=== PATIENT | female | born 1970 | race Caucasian/White ===

== ENCOUNTER 2025-01-01 07:37 | Emergency (ER) | payer MEDICARE, BC ==
[~2025-01-01] VITALS: Ht 162.6 cm; Wt 91.8 kg
[2025-01-01] MEDS: HYDROcodone-ACET 5/325MG TAB PO ONE (08:39)
[2025-01-01 08:47] VITALS: BP 126/76; PULSE 78; RESP 17; TEMP 98; O2SAT 97
--- NOTE | 2025-01-01 09:03 | ED.PDOC ---
History of Present Illness HPI Comments 54-year-old female presents with a chief complaint of knee pain s/p full-knee replacement in October 2024. Patient states that she had full-knee replacement surgery back in October 2024 on her left knee and was prescribed pain medication. Patient reports that all of this occurred in [facility] and since moving to [place], she has been unable to get refills on her pain medication. Patient takes Hydrocodone 5-325mg for the pain every 6 hours. Patient states that she has an appointment with pain management, but not until January 10, 2025. left knee pain Quality: Stabbing 10/10 pain Pharmacotherapy: [place]field 5/325mg Able to bear weight on the leg Denies trauma to the knee or recent fall Denies skin color changes around the knee Denies masses around the knee Denies popping/locking/giving out of the knee Denies fever chills night sweats nausea vomiting Denies previous surgeries to the knee nor significant injury Chief Complaint: Back Pain Time Seen by MD: 08:20 Primary Care Provider: NONE Reviewed Notes: Medications, Allergies Allergies: Coded Allergies: Carisoprodol (Verified Allergy, Unknown, 01/01/25) Erythromycin (Verified Allergy, Unknown, 01/01/25) Penicillins (Verified Allergy, Unknown, 01/01/25) Home Meds Active Scripts Tramadol HCl (Tramadol HCl) 50 Mg Tab, 50 MG PO Q8HP PRN for 10 Days, #30 TAB 0 Refills Prov:JEANNE GOSS NP 01/01/25 Information Source: Patient Mode of Arrival: Ambulatory Severity: Moderate Timing: Months Duration: Intermittent Prehospital treatment: None Past Medical History PAST MEDICAL HISTORY: Depression Surgical History: Denies all surgeries AIRFRAME TECHNICAL OFFICER History: Denies all AIRFRAME TECHNICAL OFFICER Hx Family History Family History: Reviewed,noncontributory to illness Social History Smoker: Non-Smoker Alcohol: Denies ETOH Use Drugs: Denies Drug Use Lives In: Home Constitutional: denies: chills, diaphoresis, fatigue, fever, malaise, sweats, weakness, others EENTM: denies: blurred vision, double vision, ear bleeding, ear discharge, ear drainage, ear pain, ear ringing, eye pain, eye redness, hearing loss, mouth pain, mouth swelling, nasal discharge, nose bleeding, nose congestion, nose pain, photophobia, tearing, throat pain, throat swelling, voice changes, others Respiratory: denies: cough, hemoptysis, orthopnea, SOB at rest, shortness of breath, SOB with excertion, stridor, wheezing, others Cardiovascular: denies: chest pain, dizzy spells, diaphoresis, Dyspnea on exertion, edema, irregular heart beat, left arm pain, lightheadedness, palpitations, PND, syncope, others Gastrointestinal: denies: abdomen distended, abdominal pain, blood streaked bowels, constipated, diarrhea, dysphagia, difficulty swallowing, hematemesis, melena, nausea, poor appetite, poor fluid intake, rectal bleeding, rectal pain, vomiting, others Genitourinary: denies: abnormal vagina bleeding, burning, dyspareunia, dysuria, flank pain, frequency, hematuria, incontinence, pain, , vagina discharge, urgency, others Neurological: denies: dizziness, fainting, headache, left sided numbness, left sided weakness, numbness, paresthesia, pre-existing deficit, right sided numbness, right sided weakness, seizure, speech problems, tingling, tremors, weakness, others Musculoskeletal: reports: muscle pain; denies: back pain, gout, joint pain, joint swelling, muscle stiffness, neck pain, others Integumetry: denies: bruises, change in color, change in hair/nails, dryness, laceration, lesions, lumps, rash, wounds, others Allergic/Immunocompromised: denies: Difficulty Healing, Frequent Infections, Hives, Itching, others Hematologic/Lymphatic: denies: anemia, blood clots, easy bleeding, easy bruising, swollen glands, others Endocrine: denies: excessive hunger, excessive sweating, excessive thirst, excessive urination, flushing, intolerance to cold, intolerance to heat, unexplained weight gain, unexplained weight loss, others Psychiatric: denies: anxiety, bipolar disorder, depression, hopeless, panic disorder, schizophrenia, sleepless, suicidal, others All Other Systems: Reviewed and Negative Physical Exam General Appearance: No Apparent Distress, Normal HEENT: Normal ENT Inspection, Pharynx Normal, TMs Normal Neck: Full Range of Motion, Non-Tender, Normal, Normal Inspection Respiratory: Chest Non-Tender, Lungs Clear, No Accessory Muscle Use, No Respiratory Distress, Normal Breath Sounds Cardiovascular: No Edema, No JVD, No Murmur, No Gallop, Normal Peripheral Pulses, Regular Rate/Rhythm Breast Exam: Deferred Gastrointestinal: No Organomegaly, Non Tender, No Pulsatile Mass, Normal Bowel Sounds, Soft Genitalia: Deferred Pelvic: Deferred Rectal: Deferred Extremities: No calf tenderness, Normal capillary refill, Normal inspection, Normal range of motion, Non-tender, No pedal edema Musculoskeletal : Location: Left Extremity Location: Knee Apperance: Normal, Other (VISIBLE SCAR TO MIDLINE OF LEFT KNEE, no gross abnormality to patella on inspection, no ecchymosis, swelling or open wounds, subjective pain with flexion and extension of knee. No erythema, STS or warmth to palpation below knee, no abnormality compared to unaffected extremity.) Neurologic: Alert, media clerk II-XII nml as Tested, No Motor Deficits, Normal Affect, Normal Mood, No Sensory Deficits Cerebellar Function: Normal Reflexes: Normal Skin: Dry, Normal Color, Warm Lymphatic: No Adenopathy Was a procedure done? Was a procedure done?: No Differential Dx Considerations may include: septic joint, hardware complications, chx pain X-Ray, Labs, Meds, VS Vital Signs Date Time Temp Pulse Resp B/P (MAP) Pulse Ox O2 Delivery O2 Flow Rate FiO2 01/01/25 08:47 78 17 97 Room Air 01/01/25 08:47 98.0 77 17 126/76 (93) 97 98.0 01/01/25 07:39 97.8 80 20 127/74 (91) 99 97.8 Lab Test 01/01/25 09:20 Range/Units White Blood Count 9.1 4.4-10.8 10^3/uL Red Blood Count 4.26 4.0-5.20 10^6/uL Hemoglobin 12.0 L 12.2-16.2 g/dL Hematocrit 36.3 36.0-46.0 % Mean Corpuscular Volume 85.2 80.0-100.0 fL Mean Corpuscular Hemoglobin 28.1 28.0-32.0 pg Mean Corpuscular Hemoglobin Concent 33.0 32.0-36.0 g/dL Red Cell Distribution Width 14.3 11.8-14.3 % Platelet Count 335 140-450 10^3/uL Mean Platelet Volume 7.8 6.9-10.8 fL Neutrophils (%) (Auto) 59.0 37.0-80.0 % Lymphocytes (%) (Auto) 32.3 10.0-50.0 % Monocytes (%) (Auto) 6.1 0.0-12.0 % Eosinophils (%) (Auto) 1.4 0.0-7.0 % Basophils (%) (Auto) 1.2 0.0-2.0 % Neutrophils # (Auto) 5.4 1.6-8.6 10 ^3/uL Lymphocytes # (Auto) 3.0 0.4-5.4 10 ^3/uL Monocytes # (Auto) 0.6 0-1.3 10 ^3/uL Eosinophils # (Auto) 0.1 0-0.8 10 ^3/uL Basophils # (Auto) 0.1 0-0.2 10 ^3/uL Nucleated Red Blood Cells 0.1 % Sodium Level 145 136-145 mmol/L Potassium Level 3.8 3.5-5.1 mmol/L Chloride Level 111 H 98-107 mmol/L Carbon Dioxide Level 24 20-31 mmol/L Anion Gap 10 5-15 Blood Urea Nitrogen 12 9-23 mg/dL Creatinine 0.90 0.550-1.02 mg/dL Glomerular Filtration Rate Calc 76 >90 mL/min BUN/Creatinine Ratio 13.3 10.0-20.0 Serum Glucose 100 74-106 mg/dL Calcium Level 9.8 8.7-10.4 mg/dL Current Medications Medications (Trade) Dose Ordered Sig/Baudilio Route Start Time Stop Time Status Last Admin Acetaminophen/ Hydrocodone Bitart ([place]field 5/325MG Tab) 1 tab ONCE ONCE PO 01/01/25 08:30 01/01/25 08:31 DC 01/01/25 08:39 PATIENT: VERNELL CASTRO GACCT: [id number]: [id number] : 1970 LOC: ER ROOM / BED: / AGE / SEX: 54 / F ADM STATUS: REG ER SERVICE 8 ORDERING PHYSICIAN: JEANNE GOSS NP PROCEDURE(s): LKNE3 - L KNEE 3V XRAY REASON: L knee pain. Hx of ORIF ORDER NUMBER(s): [id number], ACCESSION NUMBER(s): [id number] EXAM: XY L KNEE 3V XRAY HISTORY: L knee pain. Hx of ORIF COMPARISON: None TECHNIQUE: 3 views of the left knee were performed. FINDINGS/IMPRESSION: 1. Left total knee arthroplasty without evidence of periprosthetic fracture, loosening, or other complication. 2. Cortical prominence about the tibial tubercle on the lateral film which may be due to old trauma or postoperative changes. 3. Probable moderate joint effusion accumulates in the suprapatellar pouch. ATED BY: ARLINE SHEA MD DICTATED DATE/TIME: 01/01/25915 SIGNED BY: ARLINE SHEA MD SIGNED DATE/TIME: 01/01/25915 CC: X-Ray, Labs, Meds, VS Comment 54-year-old female presents with a chief complaint of knee pain s/p full-knee replacement in October 2024. Patient arrives alert and oriented, ABC's intact, afebrile, vital signs stable, saturating well in room air Labs were ordered. CBC was ordered to exclude anemia, blood loss, or infection. BMP was ordered to exclude electrolyte abnormalities, renal failure, dehydration, hyperglycemia Diagnostic imaging ordered by me and results interpreted by radiology : Knee XRAY 1. Left total knee arthroplasty without evidence of periprosthetic fracture, loosening, or other complication. 2. Cortical prominence about the tibial tubercle on the lateral film which may be due to old trauma or postoperative changes. 3. Probable moderate joint effusion accumulates in the suprapatellar pouch. The patient presents to the emergency room requesting a prescription for Deerfield. Discussed with patient that the emergency department does not refill controlled substances. Patient was advised they would need to follow up with their primary care doctor for future and further controlled substance prescriptions. Patient understands policy of the emergency department and agrees with plan for follow- up as an outpatient. Patient also understands all return precautions. Discussed with patient the importance of establishing medical care. Medications requested have risks and do not feel comfortable prescribing to patient. Patient is currently stable to follow up with Primary Care Provider. Patient hemodynamically stable, afebrile. No emergency medical condition is likely at this time based on careful history, physical examination and ancillary data evaluation. Additional MDM Review of External, Non-ED records: External records reviewed. Discussion with independent historian (EMS, family) history obtained from the patient/parents (if applicable) at bedside Chronic conditions affecting care: None Social determinants of health affecting care: None Consideration of admission (observation or admission): I considered escalation of care to admission for this patient, however given the reassuring workup, the patient is safe for outpatient management. Time of 1ST Reevaluation: 09:50 Reevaluation 1ST: Unchanged Patient Education/Counseling: Diagnosis, Treatment, Prognosis Family Education/Counseling: No Family Present SEPSIS Sepsis Screen Date sepsis recognized/suspect: Jan 01, 2025 Time Sepsis recognized/suspect: 738 Recent Procedure: No On Antibiotic Therapy: No Respiratory Rate >20: No Heart Rate >90: No Temp<36 C (96.8 F) or >38.3 C: No SBP <90 or MAP <65 mmHG: No New Acute Mental Status Change: No Is the patient on CPAP, BIPAP,: No Physician Orders L Knee 3v Xray (01/01/25 08:29) Urinalysis (01/01/25 08:29) Vital Signs Date Time Temp Pulse Resp B/P (MAP) Pulse Ox O2 Delivery O2 Flow Rate FiO2 01/01/25 08:47 78 17 97 Room Air 01/01/25 08:47 98.0 77 17 126/76 (93) 97 98.0 01/01/25 07:39 97.8 80 20 127/74 (91) 99 97.8 Laboratory Tests Test 01/01/25 09:20 White Blood Count 9.1 10^3/uL (4.4-10.8) Medications Medications Dose Ordered Sig/Baudilio Route Start Time Stop Time Status Last Admin Dose Admin Acetaminophen/ Hydrocodone Bitart 1 tab ONCE ONCE PO 01/01/25 08:30 01/01/25 08:31 DC 01/01/25 08:39 Departure 1 Departure Time of Disposition: 09:58 Impression: Primary Impression: Knee pain Qualified Codes: M25.562 - Pain in left knee; G89.29 - Other chronic pain Disposition: 01 HOME / SELF CARE / HOMELESS Condition: Stable e-Prescriptions Tramadol HCl (Tramadol HCl) 50 Mg Tab 50 MG PO Q8HP PRN for 10 Days, #30 TAB 0 Refills Prov: JEANNE GOSS HR ASSOCIATE 01/01/25 Critical Care Note Critical Care Time?: No Stability Stability form required: No Heart Score Heart Score: Heart Score Response (Comments) Value History N/A 0 EKG N/A 0 Age N/A 0 Risk Factors N/A 0 Troponin N/A 0 Total 0 I personally scribed for JEANNE GOSS NP ([email or web address]) on 01/01/25 at 09:03. Electronically submitted by Dean Gill ([email or web address]). I personally scribed for JEANNE GOSS NP ([email or web address]) on 01/01/25 at 09:11. Electronically submitted by Dean Gill ([email or web address]). JEANNE GOSS NP Jan 01, 2025 09:03
--- NOTE | 2025-01-01 09:19 | DVH ---
EXAM: XY L KNEE 3V XRAY HISTORY: L knee pain. Hx of ORIF COMPARISON: None TECHNIQUE: 3 views of the left knee were performed. FINDINGS/IMPRESSION: 1. Left total knee arthroplasty without evidence of periprosthetic fracture, loosening, or other comp lication. 2. Cortical prominence about the tibial tubercle on the lateral film which may be due to old trauma o r postoperative changes. 3. Probable moderate joint effusion accumulates in the suprapatellar pouch.
[2025-01-01 09:38] LABS: Basophils # (auto) 0.1 10 ^3/uL (0-0.2); Basophils % (auto) 1.2 % (0.0-2.0); Eosinophils # (auto) 0.1 10 ^3/uL (0-0.8); Eosinophils % (auto) 1.4 % (0.0-7.0); Hematocrit 36.3 % (36.0-46.0); Lymphocytes % (auto) 32.3 % (10.0-50.0); Mean Corpuscular Hemoglobin 28.1 pg (28.0-32.0); Mean Corpuscular Volume 85.2 fL (80.0-100.0); Monocytes # (auto) 0.6 10 ^3/uL (0-1.3); Monocytes % (auto) 6.1 % (0.0-12.0); Neutrophils # (auto) 5.4 10 ^3/uL (1.6-8.6); Nucleated Red Blood Cells % 0.1 %; Platelet Count (auto) 335 10^3/uL (140-450); Red Blood Cells 4.26 10^6/uL (4.0-5.20); Red Cell Distribution Width 14.3 % (11.8-14.3); White Blood Cell 9.1 10^3/uL (4.4-10.8)
[2025-01-01 09:45] LABS: Potassium 3.8 mmol/L (3.5-5.1)
[2025-01-01 09:46] LABS: Anion Gap 10 (5-15); Carbon Dioxide 24 mmol/L (20-31)
[2025-01-01 09:47] LABS: Calcium 9.8 mg/dL (8.7-10.4)
[2025-01-01 09:51] LABS: BUN/Creatinine Ratio 13.3 (10.0-20.0); Blood Urea Nitrogen 12 mg/dL (9-23); Glucose 100 mg/dL (74-106)
[2025-01-01 09:52] LABS: Chloride 111 mmol/L (98-107); Sodium 145 mmol/L (136-145)
[2025-01-01] MEDS ORDERED: NAPR-746 PO (09:58)
[2025-01-01] MEDS ORDERED: TRAM-626 PO (10:02)
== END 2025-01-01 10:07 | disposition home or self-care (01) ==
LOC: ER 07:37
DX: M25.562 Pain in left knee (principal); F32.A Depression, unspecified; Z96.652 Presence of left artificial knee joint; Z88.0 Allergy status to penicillin; Z88.1 Allergy status to other antibiotic agents; Z88.8 Allergy status to other drugs, medicaments and biological substances
CPT/HCPCS: 36415; 73562; 80048; 85025